=== PATIENT | female | born 1945 | race Caucasian/White ===

== ENCOUNTER 2024-04-17 12:57 | Outpatient (CLI) | payer OTHER ==
[~2024-04-17 12:57] MED LIST: CLARINEX-D 121 EACH; HYZAAR 100-251 EACH; NEPHRONEX-SL T1 EACH; ZANTAC150 M3
== END 2024-04-17 13:00 | disposition home or self-care (01) ==
LOC: SONOGRAMA 12:57
PROVIDERS: ATTEND Pathology Anatomic Pathology & Clinical Pathology
DX: E04.1 Nontoxic single thyroid nodule (principal)